=== PATIENT | female | born 1945 | race Caucasian/White ===

== ENCOUNTER → 2018-10-02 10:43 | Outpatient (CLI) | payer MEDICARE, OTHER, SELFPAY ==
--- NOTE | 2018-10-09 16:32 | PM.PFT.1 ---
Pulmonary Function Test Referral & Results Date Patient Seen: 10/02/18 Requesting provider: Timoteo Luna Indication: Emphysema Results: The spirometry demonstrates an FVC of 1.76 L which is 72% of predicted. The FEV1 was measured at 1.29 L which is 70% of predicted. The FEV1/FVC ratio was 73 which is 97% of predicted. Following the administration of bronchodilator there was 13% improvement in FEV1 and 56% improvement in FEF 25-75%. Lung volumes show an SVC of 1.85 L which is 75% of predicted. The diffusing capacity was measured at 13.91 which is 68% of predicted. No hemoglobin value was provided, so no correction for potential anemia could be made, if appropriate. The maximum voluntary ventilation was reduced Interpretation: This study demonstrates moderate to mild obstructive lung disease based on reduction in FEV1. There is some limited evidence of benefit following bronchodilator specially in small airway flow based on improvement in FEF 25-75% There is minimal reduction in SVC suggesting some restrictive lung disease is present as well There is a [place] reduction in diffusing capacity suggesting element of disease at the capillary alveolar level as well, unless the patient is anemic of course.
== END ==
PROVIDERS: PCP Specialist; Visit Provider Internal Medicine Pulmonary Disease
DX: J43.2 Centrilobular emphysema (principal)
CPT/HCPCS: 94060; 94726; 94729

== ENCOUNTER → 2019-01-19 09:48 | Outpatient (CLI) | payer MEDICARE, OTHER, SELFPAY | PROVIDERS: PCP Specialist; Visit Provider Internal Medicine Rheumatology | DX: M85.852 Other specified disorders of bone density and structure, left thigh (principal) | CPT/HCPCS: 77080 ==

== ENCOUNTER → 2020-02-19 11:37 | Outpatient (CLI) | payer MEDICARE, OTHER, SELFPAY ==
--- NOTE | 2020-02-19 | DI.MRI.S_ITS ---
PROCEDURE: MR KNEE RT WO CON INDICATIONS: Pain in right knee TECHNIQUE: Noncontrast sagittal PD fast spin echo and T2 fast spin echo with fat saturation, sagittal 3-D FLASH with fat saturation; coronal T1 spin echo and PD fast spin echo with fat saturation, and axial PD fast spin echo with fat saturation through the knee. COMPARISON: [facility], CR, XR KNEE ARTHRITIC SERIES RT, 10/11/2019, 13:18. FINDINGS: Image quality: Excellent. Menisci: Ill-defined tear of the medial meniscus involving the posterior root, posterior horn and body, with near complete extrusion of the body. Lateral meniscus intact. Cruciate ligaments: Anterior cruciate ligament appears intact. Posterior cruciate ligament appears intact. Medial structures: There is medial bowing of the medial collateral ligament, with mild internal signal changes and no complete rupture. There is adjacent soft tissue edema. The appearance could reflect reactive changes to medial compartment pathology, versus low-grade sprain of the MCL. Pes anserinus tendons appear grossly unremarkable. Semimembranosus tendon appears intact. Lateral structures: The lateral collateral ligament intact. Biceps femoris tendon appears intact. Popliteus tendon grossly unremarkable. Iliotibial band appears intact. Anterior structures: Quadriceps tendon intact. Medial and lateral patellofemoral ligaments intact. There is mild patellar tendinopathy. Prepatellar and superficial infrapatellar subcutaneous edema/fluid. Bones and cartilage: Intramedullary signal change with mild T2 hyperintensity and T1 hypointensity measuring 2 cm seen in the femoral metaphysis. This finding technically indeterminate. Within the medial compartment, diffuse partial-thickness loss of the femoral and tibial articular cartilage. There is subchondral marrow signal edema. Prominent focal subchondral heterogeneous signal changes in the central femoral condyle measuring approximately 8 mm in with. Within the lateral compartment, mild diffuse partial-thickness loss in the femoral tibial articular cartilage with central chondral signal changes in the tibial plateau. Within the patellofemoral compartment, diffuse surface fraying partial-thickness loss of the cartilage overlying the lateral patellar facet, and the medial femoral trochlea. Joint space: Moderate joint effusion. Large Arguello's cyst measuring approximately 6 cm in the cephalocaudal dimension. No specific evidence of intra-articular loose body. Circular heterogeneous and central low signal changes present the region of the popliteal vein of unclear etiology (image 8/16) This could be further assessed with dedicated ultrasound as clinically warranted. IMPRESSION: Circumferential macerated appearing tear of the medial meniscus involving the posterior root, posterior horn and body with near complete extrusion. Focal subchondral signal changes involving the medial femoral condyle, possibly reflecting osteochondral defect, versus severe reactive changes to joint degeneration. 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 Moderate joint effusion Intramedullary signal change involving the distal femoral metaphysis possibly enchondroma although technically nonspecific. Although less conspicuous radiographically, recommend continued surveillance with radiographs at six-month intervals for total of 2 years. If there are developing radiographic changes, repeat MRI could be performed with contrast. Incidental heterogeneous signal changes involving the popliteal vein of unclear clinical significance or etiology. This could be further assessed with dedicated lower extremity ultrasound as clinically warranted (i.e. If there is suspicion for deep venous thrombosis or lymphadenopathy) Dictated by: Walker Kumar M.D. on 02/21/2020 at 8:35 Approved by: Walker Kumar M.D. on 02/21/2020 at 8:50
== END ==
PROVIDERS: PCP Family Medicine; Referring Provider Orthopaedic Surgery; Visit Provider Orthopaedic Surgery
DX: M25.561 Pain in right knee (principal); S83.241A Other tear of medial meniscus, current injury, right knee, initial encounter; M71.21 Synovial cyst of popliteal space [Baker], right knee; M25.461 Effusion, right knee
CPT/HCPCS: 73721

== ENCOUNTER → 2020-12-08 10:58 | Outpatient (CLI) | payer MEDICARE, OTHER, SELFPAY ==
--- NOTE | 2020-12-08 | DI.MRI.S_ITS ---
PROCEDURE: MR LUMBAR SPINE WO CON INDICATIONS: SPINAL STENOSIS TECHNIQUE: Noncontrast sagittal T1 spin echo and T2 fast echo, sagittal STIR, axial T1 and T2 fast spin echo through the lumbar spine. In cases with scoliosis, additional coronal T2 fast spin echo may be performed. COMPARISON: [facility], CR, SPINE LUMB 2 OR 3VW, 07/14/2015, 9:44. [facility], CR, L-SPINE 2-3 VIEWS, 12/11/2015, 12:09. [facility], MR, L-SPINE WITHOUT CONTRAST, 02/20/2016, 19:30. FINDINGS: Image quality: Excellent. Alignment and Curvature: 5 lumbar type vertebral bodies are present by plain film. There is loss of normal lumbar lordosis. There is mild, grade 1 retrolisthesis of L1 on L2, L2 on L3, and L3 on L4. Bone Marrow: Marrow is of normal overall signal. No acute vertebral body compression fractures. There is increased, moderate reactive signal within the endplates adjacent to the L3-L4 intervertebral disc. There is decreased, mild reactive signal within the endplates adjacent to the L2-L3 intervertebral disc. Mild reactive signal within the endplates adjacent to the L1-L2, L2-L3, L4-L5, and L5-S1 intervertebral discs. There is mild chronic wedging at L1, as before. Spinal Cord: Conus medullaris terminates at the lower L1 level. Visualized cord demonstrates normal signal and size. Paraspinous Soft Tissues: No paravertebral masses. T12-L1: Moderate disc desiccation. Mild disc height loss and diffuse disc bulge. Mild facet and ligamentum flavum hypertrophy. Mild canal stenosis. No foraminal stenosis. No significant change. L1-L2: Mild disc desiccation and disc height loss. Mild diffuse disc bulge. Mild facet and ligamentum flavum hypertrophy. Mild canal stenosis. No foraminal stenosis. L2-L3: Moderate disc height loss and desiccation. Mild diffuse disc bulge. Mild facet and ligamentum flavum hypertrophy. Mild canal stenosis. Mild bilateral foraminal stenosis. No significant change. L3-L4: Moderate disc height loss and desiccation. Moderate diffuse disc bulge with superimposed broad-based left posterolateral and far lateral protrusion. Mild facet and ligamentum flavum hypertrophy. Mild epidural lipomatosis. Mild canal stenosis is unchanged. There is increased, moderate left foraminal stenosis. No right foraminal stenosis. L4-L5: Mild disc height loss. Moderate disc desiccation. Moderate diffuse disc bulge with superimposed broad-based central protrusion. Mild facet and ligamentum flavum hypertrophy. Mild epidural lipomatosis. Increased, mild canal stenosis. Increased, mild bilateral foraminal stenosis. There is mild posterior deviation with possible compression of the bilateral L5 nerve root within the lateral recesses, increased from the prior examination. L5-S1: Moderate disc desiccation. Mild disc height loss. Mild diffuse disc bulge with superimposed broad-based right far lateral protrusion. Mild facet and ligamentum flavum hypertrophy. Mild canal stenosis. Mild left and severe right foraminal stenosis. Right L5 nerve root compression, increased from the prior examination. IMPRESSION: 1. Multilevel degenerative disc and facet disease, as well as ligamentum flavum hypertrophy and epidural lipomatosis. 2. Mild multilevel canal stenosis. 3. Multilevel foraminal stenosis, worst at L5-S1 on the right where there is associated intraforaminal nerve root compression. 4. Lateral recess stenosis bilaterally at L4-L5 associated with possible L5 nerve root compression. 5. Recommend correlation with clinical symptoms to ascertain relevance of these findings. Dictated by: Cade Jaramillo M.D. on 12/08/2020 at 11:53 Approved by: Cade Jaramillo M.D. on 12/08/2020 at 11:59
== END ==
PROVIDERS: PCP Family Medicine; Referring Provider Orthopaedic Surgery Orthopaedic Surgery of the Spine; Visit Provider Orthopaedic Surgery Orthopaedic Surgery of the Spine
DX: M51.36 Other intervertebral disc degeneration, lumbar region (principal); M48.061 Spinal stenosis, lumbar region without neurogenic claudication
CPT/HCPCS: 72148

== ENCOUNTER → 2021-05-03 11:41 | Outpatient (CLI) | payer MEDICARE, OTHER, SELFPAY ==
[2021-05-03 13:07] LABS: Add Manual Diff / Slide Review NO; Basophils Absolute Auto 0 /uL (0-100); Basophils Percent Auto 0.6 % (0-2); Eosinophils Absolute Auto 100 /uL (0-450); Eosinophils Percent Auto 1.5 % (2-4); Hematocrit 39.8 % (36-46); Hemoglobin 13.2 g/dL (12.0-16.0); Lymphocytes Absolute Auto 1800 /uL (1100-4500); Lymphocytes Percent Auto 26.3 % (25-40); Mean Corpuscular HGB Conc 33.1 % (30-36); Mean Corpuscular Hemoglobin 27.6 PG (26-34); Mean Corpuscular Volume 83.2 fL (80-100); Monocytes Absolute Auto 400 /uL (0-900); Monocytes Percent Auto 5.6 % (3-14); Neutrophils Absolute Auto 4500 /uL (1500-7000); Platelet Count 273 X10^3/uL (150-400); Red Blood Cell Count 4.78 X10^6/uL (4.0-5.2); Red Cell Distribution Width 13.8 % (11.6-14.8); White Blood Cell Count 6.8 X10^3/uL (4.5-11.0)
[2021-05-03 14:03] LABS: BUN Creatinine Ratio 28.6 (6-22); Blood Urea Nitrogen 18 mg/dL (7-17); Calcium 9.9 mg/dL (8.4-10.2); Carbon Dioxide 28 mmol/L (22-32); Chloride 100 mmol/L (98-107); Estimated Glomerular Filt Rate > 60.0 mL/min (>60); Glucose 129 mg/dL (80-110); HEMOLYSIS < 15 (0-50); Potassium 4.4 mmol/L (3.4-5.1); Sodium 137 mmol/L (137-145)
== END ==
PROVIDERS: PCP Physician Assistant; Referring Provider Orthopaedic Surgery Orthopaedic Surgery of the Spine; Visit Provider Orthopaedic Surgery Orthopaedic Surgery of the Spine
DX: Z01.818 Encounter for other preprocedural examination (principal); Z01.812 Encounter for preprocedural laboratory examination
CPT/HCPCS: 36415; 80048; 85025; 93005; 93010

== ENCOUNTER → 2023-11-14 10:06 | Outpatient (CLI) | payer MEDICARE, OTHER, SELFPAY ==
--- NOTE | 2023-11-14 10:07 | DI.RAD.S_ITS ---
PROCEDURE: XR DEXA AXIAL SKELETON INDICATIONS: Age-related osteoporosis w/o current pathologi COMPARISON: , , XR DEXA AXIAL SKELETON, 01/19/2019, 10:43. FINDINGS: Lumbar Spine: Bone mineral density 0.906 g/cm2, T score -1.2. Left Hip: Bone mineral density 0.701 g/cm2, T score -2.0. Left Femoral Neck: Bone mineral density 0.532 g/cm2, T score -2.9. Right Hip: Bone mineral density 0.702 g/cm2, T score -2.0. Right Femoral Neck: Bone mineral density 0.540 g/cm2, T score -2.8. Fracture Risk Calculation (when applicable): 10-year fracture risk of a major osteoporotic fracture 21% and of a hip fracture 7.5%. (T score greater or equal to -1.0 to: NORMAL) (T score from -1.1 to -2.4: OSTEOPENIA) (T score less than or equal to -2.5: OSTEOPOROSIS) IMPRESSION: Osteoporosis. Follow-up guidelines as follows: Osteoporosis: Consider a repeat DEXA and Vertebral Fracture Assessment (VFA) exam in 2 years or sooner if medically necessary, to reassess this patient's status. Osteopenia: Consider a repeat DEXA in 2-3 years to reassess this patient's status, or if there is a new clinical indication. Normal: Consider a repeat DEXA in 5 years or sooner, or if there is a new clinical indication. Dictated by: Mike Macedo M.D. on 11/14/2023 at 15:22 Approved by: Mike Macedo M.D. on 11/14/2023 at 15:25
== END ==
PROVIDERS: PCP Physician Assistant; Referring Provider Physician Assistant; Visit Provider Physician Assistant
DX: M81.0 Age-related osteoporosis without current pathological fracture (principal); N95.8 Other specified menopausal and perimenopausal disorders
CPT/HCPCS: 77080